=== PATIENT | male | born 1995 | race Caucasian/White ===

== ENCOUNTER 2017-07-28 12:20 | Emergency (ER) | payer SELFPAY ==
[~2017-07-28] VITALS: Ht 170.2 cm; Wt 64.9 kg
[2017-07-28 12:35] VITALS: Ht 170.2 cm; Wt 64.9 kg
[2017-07-28] MEDS ORDERED: SODIUM CHLORIDE 0.9% 1000ML 1,000 ML IV STA (13:37)
[2017-07-28] MEDS ORDERED: ONDANSETRON INJ 2 MG/ML 2 ML VIAL IV PRN (13:45)
[2017-07-28] MEDS ORDERED: PANTOprazole INJ 40 MG in SYRINGE 0 ML IV ONE (13:45)
[2017-07-28 14:05] LABS: BASO % 0.2 %; BASO ABS # 0.02 K/uL (0-0.2); COMPLETE YES; EOS % 0.4 %; HEMATOCRIT 47.5 % (42-52); IG% 0.2 %; LYMPH % 32.6 %; LYMPH ABS # 3.06 K/uL (1.2-3.4); MEAN CELL VOLUME 85.4 fL (80-100); MEAN CORPUSCULAR HGB CONC 35.2 g/dl (32-36); MEAN PLATELET VOLUME 9.9 fL (7.4-10.4); MONO % 5.9 %; NEUT % 60.7 %; PLATELET COUNT 251 K/uL (130-400); RED BLOOD COUNT 5.56 M/uL (4.7-6.1); WHITE BLOOD COUNT 9.38 K/uL (4.8-10.8)
[2017-07-28 14:11] VITALS: TEMP 37
[2017-07-28 14:18] LABS: PARTIAL THROMBOPLASTIN RATIO 1.1
[2017-07-28 14:25] LABS: BUN/CREATININE RATIO 8.9 (10-20); CALCIUM 9.7 mg/dl (8.5-10.1); CREATININE 1.03 mg/dl (0.60-1.40); POTASSIUM 3.6 mmol/L (3.5-5.1)
--- NOTE | 2017-07-28 15:10 | EMERGENCY ROOM VISIT NOTE ---
History First contact with patient: 13:29 Chief Complaint: VOMITING Stated Complaint: VOMITTING WITH BLOOD Nursing Triage Summary: Abdominal pain since last night, V/D today, noticed blood in his vomit. History of Present Illness The patient is a 21 year old male who presents to the Emergency Room with complaints of nausea and vomiting today. The patient states last evening he felt like he had "a sour stomach". He had a lot of burning up in his esophagus. He admits to getting increased heartburn lately. Last evening he said his stools were loose. He denies any hematochezia or melena. The patient states that today he has not been able to keep anything down. He was concerned because initially he threw up some food and then some water and then it appear like there was some mucus with a small tinge of blood which scared him which is why he came to the emergency room. The patient also admits to generalized abdominal pain from the vomiting. He rates it at a 6 out of 10. Review of Systems 10 system review was performed and was negative unless stated otherwise history of present illness. Past Medical/Surgical History Urinary problems Social History Smoking Status: Current Every Day Smoker Alcohol Use: occasionally Marital Status: single Housing Status: lives with roommate Occupation Status: [employer] student Current/Historical Medications No Active Prescriptions or Reported Meds Physical Exam Vital Signs Date Time Temp Pulse Resp B/P (MAP) Pulse Ox O2 Delivery O2 Flow Rate FiO2 07/28/17 14:11 37.0 94 18 105/59 99 Room Air 07/28/17 12:35 37.0 94 18 132/87 99 Room Air Physical Exam GENERAL: 21-year-old male appears in no acute distress. MENTAL Status: Alert and oriented 3. NOSE: Nasal mucosa with erythema and engorgement. PHARYNX: Mild erythema, no edema or exudate noted. MOUTH: Mucosa is slightly dry. NECK: Supple, no lymphadenopathy noted. No carotid bruits noted. LUNGS: Clear auscultation without wheezes rales or rhonchi. CARDIAC: Regular rate and rhythm without murmur. Pulses is full and equal throughout. BACK: No CVA tenderness noted. ABDOMEN: Positive bowel sounds all 4 quadrants. Soft, generalized tenderness to palpation throughout with slightly increased tenderness over the epigastric region. EXTREMITIES: No cyanosis or edema noted. Medical Decision & Procedures Laboratory Results 07/28/17 13:40 Red Blood Count 5.56, Mean Corpuscular Volume 85.4, Mean Corpuscular Hemoglobin 30.0, Mean Corpuscular Hemoglobin Concent 35.2, Mean Platelet Volume 9.9, Neutrophils (%) (Auto) 60.7, Lymphocytes (%) (Auto) 32.6, Monocytes (%) (Auto) 5.9, Eosinophils (%) (Auto) 0.4, Basophils (%) (Auto) 0.2, Neutrophils # (Auto) 5.69, Lymphocytes # (Auto) 3.06, Monocytes # (Auto) 0.55, Eosinophils # (Auto) 0.04, Basophils # (Auto) 0.02 07/28/17 13:40 Test 07/28/17 13:40 White Blood Count 9.38 K/uL (4.8-10.8) Red Blood Count 5.56 M/uL (4.7-6.1) Hemoglobin 16.7 g/dL (14.0-18.0) Hematocrit 47.5 % (42-52) Mean Corpuscular Volume 85.4 fL (80-100) Mean Corpuscular Hemoglobin 30.0 pg (25-34) Mean Corpuscular Hemoglobin Concent 35.2 g/dl (32-36) Platelet Count 251 K/uL (130-400) Mean Platelet Volume 9.9 fL (7.4-10.4) Neutrophils (%) (Auto) 60.7 % Lymphocytes (%) (Auto) 32.6 % Monocytes (%) (Auto) 5.9 % Eosinophils (%) (Auto) 0.4 % Basophils (%) (Auto) 0.2 % Neutrophils # (Auto) 5.69 K/uL (1.4-6.5) Lymphocytes # (Auto) 3.06 K/uL (1.2-3.4) Monocytes # (Auto) 0.55 K/uL (0.11-0.59) Eosinophils # (Auto) 0.04 K/uL (0-0.5) Basophils # (Auto) 0.02 K/uL (0-0.2) RDW Standard Deviation 37.2 fL (36.4-46.3) RDW Coefficient of Variation 12.0 % (11.5-14.5) Immature Granulocyte % (Auto) 0.2 % Immature Granulocyte # (Auto) 0.02 K/uL (0.00-0.02) Prothrombin Time 11.0 SECONDS (9.0-12.0) Prothromb Time International Ratio 1.0 (0.9-1.1) Activated Partial Thromboplast Time 28.0 SECONDS (21.0-31.0) Partial Thromboplastin Ratio 1.1 Anion Gap 4.0 mmol/L (3-11) Est Creatinine Clear Calc Drug Dose 103.3 ml/min Estimated GFR () 119.0 Estimated GFR (Non- 102.6 BUN/Creatinine Ratio 8.9 (10-20) Calcium Level 9.7 mg/dl (8.5-10.1) Total Bilirubin 0.8 mg/dl (0.2-1) Direct Bilirubin 0.1 mg/dl (0-0.2) Aspartate Amino Transf (AST/SGOT) 16 U/L (15-37) Alanine Aminotransferase (ALT/SGPT) 34 U/L (12-78) Alkaline Phosphatase 86 U/L (45-117) Total Protein 8.7 gm/dl (6.4-8.2) Albumin 4.7 gm/dl (3.4-5.0) Lipase 95 U/L (73-393) Medications Administered Medications (Trade) Dose Ordered Sig/Mimi Route Start Time Stop Time Status Last Admin Dose Admin Sodium Chloride 1,000 ml @ 999 mls/hr Q1H1M STAT IV 07/28/17 13:37 07/28/17 14:37 DC 07/28/17 14:02 999 MLS/HR Pantoprazole Sodium 40 mg/ Syringe 10 ml @ 5 mls/min NOW ONCE IV 07/28/17 13:45 07/28/17 13:46 DC 07/28/17 14:02 5 MLS/MIN Ondansetron HCl (Zofran Inj) 4 mg Q4H PRN IV 07/28/17 13:45 08/27/17 13:44 07/28/17 14:02 4 MG ED Course The patient was evaluated. IV access was obtained. The patient was given 1 L normal saline wide-open. He was given Zofran 4 mg IV push for nausea. He was given Protonix 40 mg IV push for heartburn. CBC and differential, renal profile , coags, LFTs and lipase levels were ordered. Labs are reviewed and were unremarkable. The patient was reevaluated was feeling better. I gave him a glass of water and he was able to keep it down without any difficulty. The patient was discharged home in stable condition. Medical Decision Differential diagnosis include Nitza-Nava tear, esophagitis, viral gastritis , GI bleed I suspected this was mainly a viral gastritis and I feel that the small tinge of blood in the mucus in his vomit was most likely from postnasal drainage. It was only blood tinged and not bright red blood by the teaspoon. This only occurred on one occasion of vomiting. [place] Drug Monitoring Program Search Results: patient reviewed within database Medication Reconcilliation Current Medication List: was personally reviewed by me Blood Pressure Screening Patient's blood pressure: Normal blood pressure Impression Primary Impression: Viral gastritis Departure Information Dispostion Home / Self-Care Condition GOOD Prescriptions No Active Prescriptions or Reported Meds Referrals No Doctor, Assigned (PCP) Forms HOME CARE DOCUMENTATION FORM, IMPORTANT VISIT INFORMATION Patient Instructions ED Diet [place], ED Nausea Vomiting, [facility] Additional Instructions Push fluids. Follow bland diet. Advance diet slowly as tolerated. Recommend [id number] Prilosec, Prevacid or Nexium once daily as directed on the label for 14 days. Also recommend [id number] Zantac 150 mg at bedtime for 14 days. If your symptoms worsen in the interim, follow-up with [facility] or return to ER.
[2017-07-28 15:37] VITALS: BP 109/72; PULSE 79; O2SAT 96
== END 2017-07-28 15:35 | disposition home or self-care (01) ==
LOC: C.EDB 12:22
DX: A08.4 Viral intestinal infection, unspecified (principal); F17.210 Nicotine dependence, cigarettes, uncomplicated

== ENCOUNTER 2017-08-06 08:42 | Emergency (ER) | payer SELFPAY ==
[~2017-08-06] VITALS: Ht 172.7 cm; Wt 63.4 kg
[2017-08-06 08:44] VITALS: TEMP 36.7; Ht 172.7 cm; Wt 63.4 kg
--- NOTE | 2017-08-06 09:05 | EMERGENCY ROOM VISIT NOTE ---
History Report prepared by Shon: Ramiro Mcarthur Under the Supervision of: Dr. Juancarlos Zapata M.D. First contact with patient: 08:49 Chief Complaint: LACERATION/CUT (SUT/DERMABOND) Stated Complaint: FALL History of Present Illness The patient is a 21 year old male who presents to the Emergency Room with complaints of constant nasal pain following a fall occurring 40 minutes ago. The patient states that he was drinking alcohol, when he started running and slipped. He notes that he fell on his face but did not lose consciousness. He reports that he was dizzy following the fall and that his nose was badly bleeding. The patient states that his nose has since stopped bleeding. He also complains of chin pain, facial numbness, difficulty breathing through his nose, and mild chest pain. He denies any neck pain and abdominal pain. He denies any drug use. Source of History: patient Onset: 40 minutes ago Position: nose Timing: constant Associated Symptoms: + chest pain (mild), No LOC, No neck pain, No abdominal pain Note: He complains of dizziness, chin pain, facial numbness, difficulty breathing through his nose, and a bloody nose. Review of Systems See HPI for pertinent positives & negatives. A total of 10 systems reviewed and were otherwise negative. Past Medical & Surgical Medical Problems: (1) No chronic diseases present Old medical records were reviewed. Nurse's notes were reviewed and I agree with. Family History No pertinent family history stated. Social History Smoking Status: Never Smoker Alcohol Use: occasionally Marital Status: single Housing Status: lives with roommate Occupation Status: [employer] student Current/Historical Medications No Active Prescriptions or Reported Meds Allergies Coded Allergies: No Known Allergies (Unverified , 08/06/17) Physical Exam Vital Signs Date Time Temp Pulse Resp B/P (MAP) Pulse Ox O2 Delivery O2 Flow Rate FiO2 08/06/17 10:11 93 20 137/84 100 08/06/17 08:44 36.7 97 18 130/86 100 Room Air Physical Exam General: Non-ill appearing 21 year old male in no acute distress. Mildly intoxicated. HEENT: Normal cephalic atraumatic. Pupils are equal round and reactive to light. Extraocular movements are intact. Oropharynx is pink with moist mucous membranes. No swelling of the mouth lips or tongue. Neck: Supple with a midline trachea. No meningeal signs or stiffness, no JVD or bruits. No Stridor. Chest: Clear to auscultation bilaterally. No wheezes or rhonchi. No increased work of breathing. Heart: regular rate and rhythm. Abdomen: Soft nontender, nondistended without rebound guarding or rigidity. Extremities: No cyanosis clubbing or edema. No calf tenderness or assymetry Spine/Back. Non tender to palpation. No CVA tenderness Skin: Good turgor without rashes. Neurologic exam: Cranial nerves two through 12 are intact. Motor and sensation are intact and symmetrical throughout. Medical Decision & Procedures ER Provider Diagnostic Interpretation: Radiology results as stated below per my review and radiologist interpretation: MAXILLOFACIAL CT FINDINGS: Nasal soft tissue swelling. However, no nasal bone fractures. The visualized cervical spine, skull base, mandible, zygomatic arches, pterygoid plates, and orbital floors are intact. A retention cyst within the floor of the left maxillary sinus. IMPRESSION: Nasal soft tissue swelling. No fractures identified. Electronically signed by: Khai Prater M.D. 08/06/2017 9:[address] NONCONTRAST Findings: The paranasal sinuses and mastoid air cells are clear. The calvarium and skull base are intact. The ventricles and sulci are within normal limits. There is no mass, hematoma, midline shift, or acute infarct. Impression: No acute intracranial abnormality. Electronically signed by: Khai Prater M.D. 08/06/2017 9:36 AM ED Course 0851: Past medical records reviewed. The patient was evaluated in room B3, and a complete history and physical examination were performed. 1004: Upon reevaluation, the patient is stable. I discussed the results and treatment plan with him. There were multiple family members at bedside. I also updated them. The patient and his family verbalized agreement of the treatment plan. The patient was discharged home. Medical Decision Differential diagnoses include: facial fractures, head injury, and alcohol intoxication This patient comes in as described above he ran into a door and has nasal pain. His nose is swollen. He was bleeding from his right nares but it has stopped. There is no septal hematoma. His midface is stable he does have some mild samuel pain is a small abrasion his shoulder but has minimal tenderness and full range of motion. There is no chest trauma the chest abdomen or pelvis. He does smell of alcohol and admits to drinking there is a sober friend at bedside. I did get a CAT scan of his head and face. He was reassessed frequently. CAT scan of his head and face were unremarkable there is no facial fracture. He has no acute intracranial abnormality. He should rest ice and elevate. Use ibuprofen for pain or swelling. Return if: increasing pain, worsening of symptoms, fever or chills, any new problems or concerns. The patient's family, who I talked at the bedside were happy with plan and he was discharged to home. Blood Pressure Screening Patient's blood pressure: Elevated blood pressure (mildly elevated secondary to stress) Blood pressure disposition: Did not require urgent referral Impression Primary Impression: Facial contusion Additional Impression: Alcohol use Scribe Attestation The scribe's documentation has been prepared under my direction and personally reviewed by me in its entirety. I confirm that the note above accurately reflects all work, treatment, procedures, and medical decision making performed by me. Departure Information Dispostion Home / Self-Care Prescriptions No Active Prescriptions or Reported Meds Referrals No Doctor, Assigned (PCP) Forms HOME CARE DOCUMENTATION FORM, IMPORTANT VISIT INFORMATION Patient Instructions My [facility] Additional Instructions Rest. Drink plenty of fluids. Ice intermittently Use ibuprofen 400 mg every 6 hours as needed for pain Avoid blowing your nose and straining Sleep with your head elevated Return if: Increasing pain, worsening of symptoms, any new problems or concerns. Follow-up with your doctor this coming week for recheck. Return to the ER sooner if any problems Problem Qualifiers
--- NOTE | 2017-08-06 09:37 | DIAGNOSTIC IMAGING REPORT ---
HEAD CT NONCONTRAST CT DOSE: 1034.41 mGy.cm HISTORY: Facial injury. Head injury. eval for trauma TECHNIQUE: Multiaxial CT images of the head were performed without the use of intravenous contrast. Automated exposure control was utilized for this study. A dose lowering technique was utilized adhering to the principles of ALARA. Comparison: None. Findings: The paranasal sinuses and mastoid air cells are clear. The calvarium and skull base are intact. The ventricles and sulci are within normal limits. There is no mass, hematoma, midline shift, or acute infarct. Impression: No acute intracranial abnormality. Electronically signed by: Khai Prater M.D. 08/06/2017 9:36 AM Dictated Date/Time: 08/06/2017 9:31 AM
--- NOTE | 2017-08-06 09:41 | DIAGNOSTIC IMAGING REPORT ---
MAXILLOFACIAL CT CT DOSE: HISTORY: Facial injury. eval for trauma TECHNIQUE: Multiaxial CT images of the maxillofacial region were performed and reformatted in the coronal plane without the use of contrast. A dose lowering technique was utilized adhering to the principles of ALARA. COMPARISON: None. FINDINGS: Nasal soft tissue swelling. However, no nasal bone fractures. The visualized cervical spine, skull base, mandible, zygomatic arches, pterygoid plates, and orbital floors are intact. A retention cyst within the floor of the left maxillary sinus. IMPRESSION: Nasal soft tissue swelling. No fractures identified. Electronically signed by: Khai Prater M.D. 08/06/2017 9:40 AM Dictated Date/Time: 08/06/2017 9:36 AM
[2017-08-06 10:11] VITALS: BP 137/84; PULSE 93; O2SAT 100
== END 2017-08-06 10:12 | disposition home or self-care (01) ==
LOC: C.EDB 08:43
DX: S00.83XA Contusion of other part of head, initial encounter (principal); Z72.89 Other problems related to lifestyle; W01.0XXA Fall on same level from slipping, tripping and stumbling without subsequent striking against object, initial encounter; Y93.02 Activity, running; Y99.8 Other external cause status